=== PATIENT | female | born 1935 | race African-American/Black ===

== ENCOUNTER 2021-08-01 06:22 | Inpatient (IN) | payer MEDICARE, MEDICAID ==
[~2021-08-01] VITALS: Ht 167.6 cm; Wt 72.1 kg
[2021-08-01 07:12] LABS: BASOPHILS % 0.5 % (0.0-2.0); EOSINOPHILS % 2.3 % (0.0-5.0); HEMATOCRIT. 39.7 % (36.0-48.0); HEMOGLOBIN. 12.9 g/dL (12.0-16.0); LYMPHOCYTES % 19.3 % (20.0-50.0); MEAN CORPUSCULAR HEMOGLOBIN 27.9 pg (28.0-32.0); MEAN CORPUSCULAR VOLUME 85.9 fL (81.0-99.0); MEAN PLATELET VOLUME 8.8 fl (7.4-10.4); MONOCYTES % 6.8 % (2.0-8.0); NEUTROPHILS % 71.1 % (40.0-76.0); PLATELET 194 x1000/uL (130-400); RED BLOOD CELL COUNT 4.62 mill/uL (4.2-5.4)
[2021-08-01 07:20] LABS: CHLORIDE 109 mEq/L (98-107)
[2021-08-01] MEDS ORDERED: MAGNESIUM 1 G PREMIX 100 ML IV ONE (08:15)
[2021-08-01] MEDS ORDERED: METHYLPREDNISOLONE SOD SUCC 125 MG/2 ML VIAL IV ONE (08:15)
[2021-08-01] MEDS: AMLODIPINE 5MG TABLET PO SCH ×2 (09:58→21:58)
[2021-08-01] MEDS: ENOXAPARIN 60MG/0.6ML SYR SUBCUT NR ×2 (11:56→14:09)
[2021-08-01 12:25] LABS: PROTHROMBIN TIME 11.2 sec (9.6-11.0)
[2021-08-01] MEDS: NITROGLYCERIN OINT 1GM/INCH UDPKT TD SCH ×2 (14:13→22:04)
[2021-08-01] MEDS ORDERED: CLONIDINE 0.1MG TABLET PO PRN (15:15)
[2021-08-01] MEDS ORDERED: DEXTROSE 50% WATER 50ML SYRINGE IV PRN (15:15)
[2021-08-01] MEDS ORDERED: ONDANSETRON HCL 4MG/2ML INJ IV PRN (15:15)
[2021-08-01] MEDS ORDERED: DOCUSATE SODIUM 100MG CAPSULE PO PRN (15:15)
[2021-08-01] MEDS ORDERED: CEFTRIAXONE 1 G PREMIX 50 ML IV SCH (15:30)
[2021-08-01] MEDS: DEXAMETHASONE 4MG TABLET PO SCH (15:36)
[2021-08-01] MEDS ORDERED: AZITHROMYCIN 500 MG in DEXT 5% WATER 250 ML IV SCH (16:00)
[2021-08-01 16:50] LABS: C REACTIVE PROTEIN CARDIAC 1.9 mg/L (0.00-3.00)
[2021-08-01] MEDS: BLOOD SUGAR DIAGNOSTIC STRIP TEST SCH ×2 (17:30→21:00)
[2021-08-01] MEDS: INSULIN LISPRO 100 UNITS/ML SUBCUT SCH ×2 (17:31→22:01)
[2021-08-01 17:51] VITALS: BP 122/62
[2021-08-01 17:52] VITALS: BP 122/62
[2021-08-01] MEDS ORDERED: ALBUTEROL 6.7GM HFA INHALER ORI PRN (18:00)
[2021-08-01] MEDS ORDERED: METF-416 MT (18:57)
[2021-08-01] MEDS ORDERED: CARV12.545 MT (18:57)
[2021-08-01] MEDS ORDERED: FERR325T6 MT (18:57)
[2021-08-01] MEDS ORDERED: APIX5TAB MT (18:57)
[2021-08-01] MEDS ORDERED: ASPI-1497 MT (18:57)
[2021-08-01] MEDS ORDERED: CALC-26 MT (18:57)
[2021-08-01] MEDS ORDERED: EMPA10TA MT (18:57)
[2021-08-01] MEDS ORDERED: LOSA50TA41 MT (18:57)
[2021-08-01] MEDS ORDERED: DILT-108 MT (18:57)
[2021-08-01 20:00] VITALS: BP 161/66
[2021-08-01] MEDS: GUAIFENESIN 200MG/10ML SUGAR FREE UDC PO PRN (22:10)
[2021-08-02] VITALS: BP 134/69
[2021-08-02 04:00] VITALS: BP 130/69
[2021-08-02] MEDS: BLOOD SUGAR DIAGNOSTIC STRIP TEST SCH ×4 (06:04→21:00)
[2021-08-02] MEDS: NITROGLYCERIN OINT 1GM/INCH UDPKT TD SCH ×3 (06:19→23:17)
[2021-08-02] MEDS: ACETAMINOPHEN 325MG TABLET PO PRN (06:24)
[2021-08-02 08:00] VITALS: BP 142/57
[2021-08-02 08:02] LABS: BASOPHILS % 0.1 % (0.0-2.0); HEMATOCRIT. 35.6 % (36.0-48.0); HEMOGLOBIN. 11.7 g/dL (12.0-16.0); MEAN CORPUSCULAR HEMOGLOBIN 27.7 pg (28.0-32.0); MEAN CORPUSCULAR VOLUME 84.4 fL (81.0-99.0); MEAN PLATELET VOLUME 8.8 fl (7.4-10.4); MONOCYTES % 6.6 % (2.0-8.0); NEUTROPHILS % 80.3 % (40.0-76.0); PLATELET 187 x1000/uL (130-400); RED BLOOD CELL COUNT 4.22 mill/uL (4.2-5.4); RED CELL DISTRIBUTION WIDTH 15.9 % (11.6-14.6)
[2021-08-02 08:15] LABS: CHLORIDE 108 mEq/L (98-107)
[2021-08-02] MEDS: CEFTRIAXONE 1,000 MG in DEXTROSE 5% WATER 50 ML IV SCH (08:38)
[2021-08-02] MEDS: AMLODIPINE 5MG TABLET PO SCH ×2 (08:39→23:15)
[2021-08-02] MEDS: DEXAMETHASONE 4MG TABLET PO SCH (08:39)
[2021-08-02] MEDS: ENOXAPARIN 60MG/0.6ML SYR SUBCUT SCH (08:39)
[2021-08-02] MEDS: ASPIRIN 81MG EC TABLET PO SCH (08:39)
[2021-08-02] MEDS: INSULIN LISPRO 100 UNITS/ML SUBCUT SCH ×4 (08:40→23:16)
[2021-08-02] MEDS: AZITHROMYCIN 500 MG in DEXT 5% WATER 250 ML IV SCH (10:00)
[2021-08-02 12:00] VITALS: BP 139/74
[2021-08-02 16:00] VITALS: BP 131/50
[2021-08-02] MEDS ORDERED: ENOXAPARIN 80MG/0.8ML SYR SUBCUT SCH (20:00)
[2021-08-02] MEDS: GUAIFENESIN 200MG/10ML SUGAR FREE UDC PO PRN (23:16)
[2021-08-02] MEDS: CARVEDILOL 12.5MG TABLET PO SCH (23:16)
[2021-08-03] MEDS: ACETAMINOPHEN 325MG TABLET PO PRN (04:43)
[2021-08-03] MEDS: NITROGLYCERIN OINT 1GM/INCH UDPKT TD SCH ×2 (06:00→13:37)
[2021-08-03 07:08] LABS: BASOPHILS % 0.2 % (0.0-2.0); EOSINOPHILS % 0.2 % (0.0-5.0); HEMOGLOBIN. 12.1 g/dL (12.0-16.0); LYMPHOCYTES % 8.5 % (20.0-50.0); MEAN CORPUSCULAR HEMOGLOBIN 27.6 pg (28.0-32.0); MEAN CORPUSCULAR VOLUME 84.3 fL (81.0-99.0); MONOCYTES % 5.6 % (2.0-8.0); NEUTROPHILS % 85.5 % (40.0-76.0); RED BLOOD CELL COUNT 4.39 mill/uL (4.2-5.4); RED CELL DISTRIBUTION WIDTH 15.5 % (11.6-14.6)
[2021-08-03 07:21] LABS: CHLORIDE 110 mEq/L (98-107)
[2021-08-03] MEDS: BLOOD SUGAR DIAGNOSTIC STRIP TEST SCH ×2 (07:55→13:05)
[2021-08-03 08:00] VITALS: BP 153/54
[2021-08-03 09:00] LABS: MEAN PLATELET VOLUME 9.5 fl (7.4-10.4); PLATELET 161 x1000/uL (130-400)
[2021-08-03] MEDS: AZITHROMYCIN 500 MG in DEXT 5% WATER 250 ML IV SCH (09:49)
[2021-08-03] MEDS: INSULIN LISPRO 100 UNITS/ML SUBCUT SCH ×2 (09:50→13:36)
[2021-08-03] MEDS: CEFTRIAXONE 1,000 MG in DEXTROSE 5% WATER 50 ML IV SCH (09:51)
[2021-08-03] MEDS: ASPIRIN 81MG EC TABLET PO SCH (09:55)
[2021-08-03] MEDS: DEXAMETHASONE 4MG TABLET PO SCH (09:56)
[2021-08-03] MEDS: CARVEDILOL 12.5MG TABLET PO SCH (09:57)
[2021-08-03] MEDS: ENOXAPARIN 60MG/0.6ML SYR SUBCUT SCH (09:58)
[2021-08-03] MEDS: AMLODIPINE 5MG TABLET PO SCH (09:58)
[2021-08-03 12:00] VITALS: BP 138/69
[2021-08-03] MEDS ORDERED: DEXTL PO (13:29)
[2021-08-04] MEDS ORDERED: AZITHROMYCIN 500 MG TABLET PO SCH (09:00)
== END 2021-08-03 16:02 | disposition home or self-care (01) | DRG 871 ==
LOC: ER 06:22 → 7WST 11:51 → ENRESERV 15:54
PROVIDERS: ADMIT Internal Medicine; ATTEND Internal Medicine
DX: A41.9 Sepsis, unspecified organism (principal); J12.82 Pneumonia due to coronavirus disease 2019; U07.1 COVID-19; J96.01 Acute respiratory failure with hypoxia; E78.5 Hyperlipidemia, unspecified; E78.00 Pure hypercholesterolemia, unspecified; I11.9 Hypertensive heart disease without heart failure; I48.0 Paroxysmal atrial fibrillation; E11.65 Type 2 diabetes mellitus with hyperglycemia; I25.10 Atherosclerotic heart disease of native coronary artery without angina pectoris; I25.2 Old myocardial infarction; Z79.01 Long term (current) use of anticoagulants; Z79.899 Other long term (current) drug therapy; Z95.5 Presence of coronary angioplasty implant and graft; Z90.710 Acquired absence of both cervix and uterus
CPT/HCPCS: 36415; 71045; 80048; 80053; 82728; 82962; 83036; 83615; 83880; 84145; 84484; 85025; 85379; 86141; 87426; 93005; 99291; J0456; J0696; J1650; J1815; J2930; J3475; J7060; J8540

== ENCOUNTER 2021-10-03 06:57 | Inpatient (IN) | payer MEDICARE, MEDICAID ==
[~2021-10-03] VITALS: Ht 160 cm; Wt 65.8 kg
[~2021-10-03 06:57] MED LIST: APIX5TAB MT; ASPI-1497 MT; CALC-26 MT; CARV12.545 MT; DEXTL PO; DILT-108 MT; EMPA10TA MT; FERR325T6 MT; LOSA50TA41 MT; METF-416 MT
[2021-10-03] MEDS ORDERED: IPRATROPIUM BROMIDE (0.02%) 0.5MG/2.5ML NEB HHN STA (07:17)
[2021-10-03] MEDS ORDERED: ALBUTEROL (0.083%) 2.5MG/3ML NEB HHN STA (07:17)
[2021-10-03] MEDS ORDERED: METHYLPREDNISOLONE SOD SUCC 125 MG/2 ML VIAL IV STA (07:17)
[2021-10-03] MEDS ORDERED: ASPIRIN 325MG EC TABLET PO ONE (07:30)
[2021-10-03] MEDS ORDERED: MAGNESIUM 2 G PREMIX 50 ML IV ONE (07:30)
[2021-10-03 07:35] LABS: BASOPHILS % 0.7 % (0.0-2.0); EOSINOPHILS % 2.5 % (0.0-5.0); HEMATOCRIT. 37.4 % (36.0-48.0); HEMOGLOBIN. 12.1 g/dL (12.0-16.0); LYMPHOCYTES % 10.9 % (20.0-50.0); MEAN CORPUSCULAR HEMOGLOBIN 28.6 pg (28.0-32.0); MEAN CORPUSCULAR VOLUME 88.1 fL (81.0-99.0); MEAN PLATELET VOLUME 8.9 fl (7.4-10.4); MONOCYTES % 7.3 % (2.0-8.0); NEUTROPHILS % 78.6 % (40.0-76.0); PLATELET 157 x1000/uL (130-400); RED BLOOD CELL COUNT 4.24 mill/uL (4.2-5.4); RED CELL DISTRIBUTION WIDTH 15.9 % (11.6-14.6)
[2021-10-03 07:51] LABS: CHLORIDE 112 mEq/L (98-107)
[2021-10-03 09:09] LABS: CLARITY URINE CLEAR (CLEAR); COLOR URINE YELLOW (YELLOW); KETONES URINE NEGATIVE (NEGATIVE); LEUKOCYTE ESTERASE URINE TRACE (NEGATIVE); NITRITE URINE NEGATIVE (NEGATIVE); OCCULT BLOOD URINE TRACE (NEGATIVE); PROTEIN URINE 1+ (NEGATIVE); SPECIFIC GRAVITY URINE 1.028 (1.005-1.030); UROBILINOGEN URINE 0.2 E.U./dL (0.2-1.0)
[2021-10-03] MEDS ORDERED: FUROSEMIDE 20MG/2ML VIAL IVP ONE (09:15)
[2021-10-03] MEDS ORDERED: IPRATROPIUM/ALBUTEROL 0.5-3(2.5)MG/3ML NEB HHN PRN (13:00)
[2021-10-03] MEDS ORDERED: MAGNESIUM/ALUMINUM HYDROXIDE/SIMETHICONE 30ML UDC PO PRN (13:00)
[2021-10-03] MEDS ORDERED: DEXTROSE 50% WATER 50ML SYRINGE IV PRN (13:00)
[2021-10-03] MEDS ORDERED: CLONIDINE 0.1MG TABLET PO PRN (13:00)
[2021-10-03] MEDS ORDERED: ONDANSETRON HCL 4MG/2ML INJ IV PRN (13:00)
[2021-10-03] MEDS ORDERED: ACETAMINOPHEN 325MG TABLET PO PRN (13:00)
[2021-10-03] MEDS ORDERED: DIPHENHYDRAMINE 50MG/ML VIAL IV PRN (13:00)
[2021-10-03] MEDS: BLOOD SUGAR DIAGNOSTIC STRIP TEST SCH ×2 (13:23→21:56)
[2021-10-03] MEDS: INSULIN LISPRO 100 UNITS/ML SUBCUT SCH ×2 (13:26→22:21)
[2021-10-03] MEDS: CARVEDILOL 12.5MG TABLET PO SCH ×2 (13:44→21:58)
[2021-10-03] MEDS ORDERED: NITROGLYCERIN OINT 1GM/INCH UDPKT TD SCH (14:00)
[2021-10-03] MEDS: ENOXAPARIN 80MG/0.8ML SYR SUBCUT SCH (14:13)
[2021-10-03] MEDS: SODIUM CHLORIDE 0.9% INJ 3ML FLUSH IVF SCH ×2 (14:13→22:43)
[2021-10-03 18:58] VITALS: BP 138/75
[2021-10-03] MEDS ORDERED: DILTIAZEM HCL 5MG/ML 5ML VIAL IV NR (19:15)
[2021-10-03 20:00] VITALS: BP 149/85
[2021-10-03] MEDS ORDERED: ZOLPIDEM TARTRATE 5MG TABLET PO PRN (21:00)
[2021-10-03] MEDS ORDERED: AMLODIPINE 5MG TABLET PO SCH (21:00)
[2021-10-03] MEDS: ACETAMINOPHEN 325MG TABLET PO PRN (21:58)
[2021-10-03] MEDS: ATORVASTATIN CALCIUM 20MG TABLET PO SCH (21:58)
[2021-10-03] MEDS: DILTIAZEM HCL 60MG TABLET PO SCH (22:42)
[2021-10-04] VITALS: BP 118/56
[2021-10-04] MEDS: GUAIFENESIN 200MG/10ML SUGAR FREE UDC PO PRN ×3 (02:10→21:21)
[2021-10-04] MEDS: ENOXAPARIN 80MG/0.8ML SYR SUBCUT SCH (02:10)
[2021-10-04 04:00] VITALS: BP 131/75
[2021-10-04] MEDS: DILTIAZEM HCL 60MG TABLET PO SCH (05:00)
[2021-10-04] MEDS: SODIUM CHLORIDE 0.9% INJ 3ML FLUSH IVF SCH ×3 (05:01→21:23)
[2021-10-04 06:19] LABS: HEMATOCRIT. 37.5 % (36.0-48.0); HEMOGLOBIN. 12.3 g/dL (12.0-16.0); LYMPHOCYTES % 7.7 % (20.0-50.0); MEAN CORPUSCULAR HEMOGLOBIN 27.9 pg (28.0-32.0); MEAN PLATELET VOLUME 9.3 fl (7.4-10.4); MONOCYTES % 5.2 % (2.0-8.0); NEUTROPHILS % 87.1 % (40.0-76.0); PLATELET 174 x1000/uL (130-400); RED BLOOD CELL COUNT 4.41 mill/uL (4.2-5.4); RED CELL DISTRIBUTION WIDTH 16.1 % (11.6-14.6)
[2021-10-04] MEDS: BLOOD SUGAR DIAGNOSTIC STRIP TEST SCH ×4 (06:21→21:41)
[2021-10-04 06:30] LABS: INR 1.1; PROTHROMBIN TIME 12.1 sec (9.6-11.0)
[2021-10-04] MEDS ORDERED: DILTIAZEM HCL 5MG/ML 5ML VIAL IV PRN (06:30)
[2021-10-04 06:38] LABS: CHLORIDE 109 mEq/L (98-107)
[2021-10-04 07:34] VITALS: BP 130/70
[2021-10-04] MEDS: INSULIN LISPRO 100 UNITS/ML SUBCUT SCH ×4 (07:50→21:40)
[2021-10-04] MEDS: ASPIRIN 81MG EC TABLET PO SCH (08:45)
[2021-10-04] MEDS: CARVEDILOL 12.5MG TABLET PO SCH ×2 (08:45→21:00)
[2021-10-04] MEDS: ACETAMINOPHEN 325MG TABLET PO PRN (10:38)
[2021-10-04 12:00] VITALS: BP 120/64
[2021-10-04] MEDS: DILTIAZEM HCL 90MG TABLET PO SCH ×2 (13:53→21:22)
[2021-10-04 16:00] VITALS: BP 119/66
[2021-10-04] MEDS: APIXABAN 5 MG TABLET PO SCH (17:29)
[2021-10-04] MEDS: METFORMIN HCL 500MG TABLET PO SCH (17:29)
[2021-10-04] MEDS: PROMETHAZINE/DEXTROMETHORPHAN 6.25-15MG/5ML BOTTLE 120ML PO PRN (17:30)
[2021-10-04 20:00] VITALS: BP 109/68
[2021-10-04] MEDS: GUAIFENESIN 600MG ER TABLET PO SCH (21:00)
[2021-10-04] MEDS: ATORVASTATIN CALCIUM 20MG TABLET PO SCH (21:22)
[2021-10-04] MEDS: INSULIN GLARGINE 100 UNITS/ML SUBCUT SCH (21:41)
[2021-10-05] VITALS (7 sets, daily range): BP systolic 115–147; BP diastolic 61–78
[2021-10-05] MEDS: PROMETHAZINE/DEXTROMETHORPHAN 6.25-15MG/5ML BOTTLE 120ML PO PRN ×2 (02:47→11:56)
[2021-10-05 06:16] LABS: BASOPHILS % 0.2 % (0.0-2.0); EOSINOPHILS % 0.8 % (0.0-5.0); HEMATOCRIT. 37.4 % (36.0-48.0); HEMOGLOBIN. 12.3 g/dL (12.0-16.0); LYMPHOCYTES % 16.2 % (20.0-50.0); MEAN CORPUSCULAR HEMOGLOBIN 28.1 pg (28.0-32.0); MEAN CORPUSCULAR VOLUME 85.5 fL (81.0-99.0); MONOCYTES % 8.7 % (2.0-8.0); NEUTROPHILS % 74.1 % (40.0-76.0); PLATELET 183 x1000/uL (130-400); RED BLOOD CELL COUNT 4.37 mill/uL (4.2-5.4); RED CELL DISTRIBUTION WIDTH 15.5 % (11.6-14.6)
[2021-10-05] MEDS: BLOOD SUGAR DIAGNOSTIC STRIP TEST SCH ×4 (06:24→21:26)
[2021-10-05] MEDS: SODIUM CHLORIDE 0.9% INJ 3ML FLUSH IVF SCH ×3 (06:24→21:18)
[2021-10-05] MEDS: DILTIAZEM HCL 90MG TABLET PO SCH (06:24)
[2021-10-05] MEDS: INSULIN LISPRO 100 UNITS/ML SUBCUT SCH ×4 (07:12→21:20)
[2021-10-05 07:16] LABS: CHLORIDE 111 mEq/L (98-107)
[2021-10-05] MEDS: CARVEDILOL 12.5MG TABLET PO SCH ×2 (08:31→21:18)
[2021-10-05] MEDS: METFORMIN HCL 500MG TABLET PO SCH ×2 (08:31→16:58)
[2021-10-05] MEDS: ASPIRIN 81MG EC TABLET PO SCH (08:31)
[2021-10-05] MEDS: APIXABAN 5 MG TABLET PO SCH ×2 (08:31→16:57)
[2021-10-05] MEDS: GUAIFENESIN 600MG ER TABLET PO SCH ×2 (08:31→22:24)
[2021-10-05] MEDS: DILTIAZEM HCL 180MG CAPSULE CD 24HR PO SCH ×2 (11:55→21:18)
[2021-10-05] MEDS: ATORVASTATIN CALCIUM 20MG TABLET PO SCH (21:18)
[2021-10-05] MEDS: GUAIFENESIN 200MG/10ML SUGAR FREE UDC PO PRN ×2 (21:19→22:24)
[2021-10-05] MEDS: INSULIN GLARGINE 100 UNITS/ML SUBCUT SCH (21:20)
[2021-10-06] MEDS: ACETAMINOPHEN 325MG TABLET PO PRN ×2 (03:14→15:43)
[2021-10-06] MEDS: PROMETHAZINE/DEXTROMETHORPHAN 6.25-15MG/5ML BOTTLE 120ML PO PRN (03:16)
[2021-10-06 04:00] VITALS: BP 155/75
[2021-10-06] MEDS: SODIUM CHLORIDE 0.9% INJ 3ML FLUSH IVF SCH ×3 (06:15→21:57)
[2021-10-06] MEDS: BLOOD SUGAR DIAGNOSTIC STRIP TEST SCH ×4 (07:13→21:56)
[2021-10-06] MEDS: INSULIN LISPRO 100 UNITS/ML SUBCUT SCH ×4 (07:50→21:00)
[2021-10-06 08:00] VITALS: BP 141/75
[2021-10-06] MEDS: GUAIFENESIN 600MG ER TABLET PO SCH ×2 (09:00→21:56)
[2021-10-06] MEDS: DILTIAZEM HCL 180MG CAPSULE CD 24HR PO SCH ×2 (10:13→21:55)
[2021-10-06] MEDS: ASPIRIN 81MG EC TABLET PO SCH (10:14)
[2021-10-06] MEDS: METFORMIN HCL 500MG TABLET PO SCH ×2 (10:14→18:00)
[2021-10-06] MEDS: APIXABAN 5 MG TABLET PO SCH ×2 (10:14→18:00)
[2021-10-06] MEDS: CARVEDILOL 12.5MG TABLET PO SCH ×2 (10:14→21:55)
[2021-10-06 12:00] VITALS: BP 120/71
[2021-10-06] MEDS ORDERED: ALEN70TA79 PO (15:35)
[2021-10-06] MEDS ORDERED: INSU200I4 SQ (15:35)
[2021-10-06] MEDS ORDERED: SIMV-43 PO (15:35)
[2021-10-06 16:00] VITALS: BP 117/54
[2021-10-06 16:22] LABS: BASOPHILS % 0.3 % (0.0-2.0); HEMATOCRIT. 38.9 % (36.0-48.0); HEMOGLOBIN. 12.2 g/dL (12.0-16.0); LYMPHOCYTES % 12.4 % (20.0-50.0); MEAN CORPUSCULAR HEMOGLOBIN 28.2 pg (28.0-32.0); MEAN CORPUSCULAR VOLUME 89.5 fL (81.0-99.0); MEAN PLATELET VOLUME 8.9 fl (7.4-10.4); MONOCYTES % 9.4 % (2.0-8.0); NEUTROPHILS % 75.9 % (40.0-76.0); PLATELET 167 x1000/uL (130-400); RED BLOOD CELL COUNT 4.35 mill/uL (4.2-5.4); RED CELL DISTRIBUTION WIDTH 16.4 % (11.6-14.6)
[2021-10-06 17:09] LABS: CHLORIDE 111 mEq/L (98-107)
[2021-10-06] MEDS ORDERED: FUROSEMIDE 40MG/4ML VIAL IVP NR (18:15)
[2021-10-06 20:00] VITALS: BP 137/61
[2021-10-06] MEDS: ATORVASTATIN CALCIUM 20MG TABLET PO SCH (21:55)
[2021-10-06] MEDS: INSULIN GLARGINE 100 UNITS/ML SUBCUT SCH (21:59)
[2021-10-07] VITALS: BP 144/66
[2021-10-07] MEDS ORDERED: FUROSEMIDE 20MG TABLET PO SCH ×2 (00:10→09:00)
[2021-10-07] MEDS ORDERED: FUROSEMIDE 40MG/4ML VIAL IVP NR (00:45)
[2021-10-07 04:00] VITALS: BP 132/60
[2021-10-07 06:40] LABS: BASOPHILS % 0.4 % (0.0-2.0); EOSINOPHILS % 3.7 % (0.0-5.0); HEMATOCRIT. 37.9 % (36.0-48.0); HEMOGLOBIN. 12.2 g/dL (12.0-16.0); LYMPHOCYTES % 16.9 % (20.0-50.0); MEAN CORPUSCULAR HEMOGLOBIN 27.9 pg (28.0-32.0); MEAN PLATELET VOLUME 9.4 fl (7.4-10.4); MONOCYTES % 10.1 % (2.0-8.0); NEUTROPHILS % 68.9 % (40.0-76.0); PLATELET 168 x1000/uL (130-400); RED BLOOD CELL COUNT 4.35 mill/uL (4.2-5.4); RED CELL DISTRIBUTION WIDTH 15.7 % (11.6-14.6)
[2021-10-07] MEDS: BLOOD SUGAR DIAGNOSTIC STRIP TEST SCH ×4 (06:41→21:58)
[2021-10-07] MEDS: METFORMIN HCL 500MG TABLET PO SCH ×2 (06:48→16:56)
[2021-10-07] MEDS: SODIUM CHLORIDE 0.9% INJ 3ML FLUSH IVF SCH ×3 (06:48→22:20)
[2021-10-07 07:10] LABS: CHLORIDE 108 mEq/L (98-107)
[2021-10-07 08:30] VITALS: BP 140/66
[2021-10-07] MEDS: INSULIN LISPRO 100 UNITS/ML SUBCUT SCH ×4 (08:56→21:00)
[2021-10-07] MEDS: GUAIFENESIN 600MG ER TABLET PO SCH ×2 (08:57→22:20)
[2021-10-07] MEDS: ASPIRIN 81MG EC TABLET PO SCH (08:57)
[2021-10-07] MEDS: CARVEDILOL 12.5MG TABLET PO SCH (08:57)
[2021-10-07] MEDS: APIXABAN 5 MG TABLET PO SCH (08:57)
[2021-10-07] MEDS: DILTIAZEM HCL 180MG CAPSULE CD 24HR PO SCH ×2 (08:58→22:19)
[2021-10-07] MEDS ORDERED: FUROSEMIDE 40MG TABLET PO SCH (09:00)
[2021-10-07 11:43] VITALS: BP 138/64
[2021-10-07] MEDS: FUROSEMIDE 40MG/4ML VIAL IVP SCH (14:05)
[2021-10-07] MEDS ORDERED: METOPROLOL TARTRATE 25MG TABLET PO NR (15:00)
[2021-10-07 16:30] VITALS: BP 140/60
[2021-10-07 20:00] VITALS: BP 143/62
[2021-10-07] MEDS: ATORVASTATIN CALCIUM 20MG TABLET PO SCH (22:19)
[2021-10-07] MEDS: METOPROLOL TARTRATE 25MG TABLET PO SCH (22:20)
[2021-10-07] MEDS: INSULIN GLARGINE 100 UNITS/ML SUBCUT SCH (22:26)
[2021-10-08] VITALS: BP 130/60
[2021-10-08 04:00] VITALS: BP 149/70
[2021-10-08] MEDS: SODIUM CHLORIDE 0.9% INJ 3ML FLUSH IVF SCH ×3 (05:52→21:40)
[2021-10-08] MEDS: BLOOD SUGAR DIAGNOSTIC STRIP TEST SCH ×4 (05:52→21:39)
[2021-10-08] MEDS: METFORMIN HCL 500MG TABLET PO SCH ×2 (05:52→17:00)
[2021-10-08] MEDS: ASPIRIN 81MG EC TABLET PO SCH (07:10)
[2021-10-08 08:08] VITALS: BP 154/88
[2021-10-08] MEDS: INSULIN LISPRO 100 UNITS/ML SUBCUT SCH ×4 (08:48→21:00)
[2021-10-08] MEDS: FUROSEMIDE 40MG/4ML VIAL IVP SCH (08:49)
[2021-10-08] MEDS: METOPROLOL TARTRATE 25MG TABLET PO SCH ×2 (09:51→21:39)
[2021-10-08] MEDS: GUAIFENESIN 600MG ER TABLET PO SCH ×2 (09:51→21:38)
[2021-10-08] MEDS: DILTIAZEM HCL 180MG CAPSULE CD 24HR PO SCH ×2 (09:51→21:39)
[2021-10-08 12:16] VITALS: BP 144/66
[2021-10-08 16:21] VITALS: BP 140/56
[2021-10-08 16:25] LABS: BASOPHILS % 0.4 % (0.0-2.0); EOSINOPHILS % 2.7 % (0.0-5.0); HEMATOCRIT. 39.4 % (36.0-48.0); HEMOGLOBIN. 12.6 g/dL (12.0-16.0); LYMPHOCYTES % 13.6 % (20.0-50.0); MEAN CORPUSCULAR HEMOGLOBIN 27.7 pg (28.0-32.0); MEAN CORPUSCULAR VOLUME 86.5 fL (81.0-99.0); MEAN PLATELET VOLUME 9.2 fl (7.4-10.4); MONOCYTES % 9.3 % (2.0-8.0); PLATELET 189 x1000/uL (130-400); RED BLOOD CELL COUNT 4.55 mill/uL (4.2-5.4); RED CELL DISTRIBUTION WIDTH 15.6 % (11.6-14.6)
[2021-10-08 20:00] VITALS: BP 159/62
[2021-10-08] MEDS: ATORVASTATIN CALCIUM 20MG TABLET PO SCH (21:40)
[2021-10-08] MEDS: GUAIFENESIN 200MG/10ML SUGAR FREE UDC PO PRN (21:44)
[2021-10-08] MEDS: INSULIN GLARGINE 100 UNITS/ML SUBCUT SCH (21:44)
[2021-10-09] VITALS (7 sets, daily range): BP systolic 17–151; BP diastolic 54–66
[2021-10-09] MEDS: BLOOD SUGAR DIAGNOSTIC STRIP TEST SCH ×4 (06:37→21:27)
[2021-10-09] MEDS: SODIUM CHLORIDE 0.9% INJ 3ML FLUSH IVF SCH ×3 (06:38→21:32)
[2021-10-09] MEDS: INSULIN LISPRO 100 UNITS/ML SUBCUT SCH ×4 (07:50→21:37)
[2021-10-09] MEDS: DILTIAZEM HCL 180MG CAPSULE CD 24HR PO SCH ×2 (09:00→11:51)
[2021-10-09] MEDS: FUROSEMIDE 40MG/4ML VIAL IVP SCH (10:39)
[2021-10-09] MEDS: GUAIFENESIN 600MG ER TABLET PO SCH ×2 (10:40→21:29)
[2021-10-09] MEDS: METFORMIN HCL 500MG TABLET PO SCH ×2 (10:40→17:45)
[2021-10-09] MEDS: METOPROLOL TARTRATE 25MG TABLET PO SCH ×2 (10:40→21:30)
[2021-10-09 16:33] LABS: HEMATOCRIT 41.3 % (36.0-48.0); HEMOGLOBIN 13.2 g/dL (12.0-16.0); MEAN CORPUSCULAR HEMOGLOBIN 28.3 pg (28.0-32.0); MEAN CORPUSCULAR VOLUME 88.1 fL (81.0-99.0); PLATELET 199 x1000/uL (130-400); RED BLOOD CELL COUNT 4.69 mill/uL (4.2-5.4); RED CELL DISTRIBUTION WIDTH 15.8 % (11.6-14.6)
[2021-10-09 16:54] LABS: CHLORIDE 104 mEq/L (98-107)
[2021-10-09] MEDS: ATORVASTATIN CALCIUM 20MG TABLET PO SCH (21:29)
[2021-10-09] MEDS: GUAIFENESIN 200MG/10ML SUGAR FREE UDC PO PRN (21:31)
[2021-10-09] MEDS: INSULIN GLARGINE 100 UNITS/ML SUBCUT SCH (21:36)
[2021-10-10] VITALS (7 sets, daily range): BP systolic 123–156; BP diastolic 51–65
[2021-10-10] MEDS: METFORMIN HCL 500MG TABLET PO SCH ×2 (06:46→17:09)
[2021-10-10] MEDS: BLOOD SUGAR DIAGNOSTIC STRIP TEST SCH ×4 (06:46→20:34)
[2021-10-10] MEDS: SODIUM CHLORIDE 0.9% INJ 3ML FLUSH IVF SCH ×3 (06:47→21:20)
[2021-10-10] MEDS: INSULIN LISPRO 100 UNITS/ML SUBCUT SCH ×4 (06:47→20:34)
[2021-10-10] MEDS: FUROSEMIDE 40MG/4ML VIAL IVP SCH (08:54)
[2021-10-10] MEDS: GUAIFENESIN 600MG ER TABLET PO SCH ×2 (08:54→21:19)
[2021-10-10] MEDS: DILTIAZEM HCL 180MG CAPSULE CD 24HR PO SCH ×2 (08:55→21:19)
[2021-10-10] MEDS: METOPROLOL TARTRATE 25MG TABLET PO SCH ×2 (08:55→21:19)
[2021-10-10] MEDS: ATORVASTATIN CALCIUM 20MG TABLET PO SCH (21:19)
[2021-10-10] MEDS: GUAIFENESIN 200MG/10ML SUGAR FREE UDC PO PRN (22:34)
[2021-10-10] MEDS: INSULIN GLARGINE 100 UNITS/ML SUBCUT SCH (22:35)
[2021-10-10] MEDS: PROMETHAZINE/DEXTROMETHORPHAN 6.25-15MG/5ML BOTTLE 120ML PO PRN (22:39)
[2021-10-11 01:53] LABS: INR 1.1; PROTHROMBIN TIME 11.4 sec (9.6-11.0)
[2021-10-11 04:30] VITALS: BP 132/53
[2021-10-11] MEDS: SODIUM CHLORIDE 0.9% INJ 3ML FLUSH IVF SCH ×3 (05:56→21:23)
[2021-10-11] MEDS: BLOOD SUGAR DIAGNOSTIC STRIP TEST SCH ×4 (06:29→21:24)
[2021-10-11] MEDS: INSULIN LISPRO 100 UNITS/ML SUBCUT SCH ×4 (07:50→21:00)
[2021-10-11 08:00] VITALS: BP 151/61
[2021-10-11] MEDS: FUROSEMIDE 40MG/4ML VIAL IVP SCH (08:54)
[2021-10-11] MEDS: METFORMIN HCL 500MG TABLET PO SCH ×2 (08:55→17:40)
[2021-10-11] MEDS: DILTIAZEM HCL 180MG CAPSULE CD 24HR PO SCH ×2 (08:55→21:23)
[2021-10-11] MEDS: GUAIFENESIN 600MG ER TABLET PO SCH ×2 (08:56→21:23)
[2021-10-11] MEDS: METOPROLOL TARTRATE 25MG TABLET PO SCH ×2 (08:56→21:23)
[2021-10-11 12:00] VITALS: BP 140/70
[2021-10-11 16:00] VITALS: BP 146/56
[2021-10-11 20:00] VITALS: BP 137/70
[2021-10-11] MEDS: ATORVASTATIN CALCIUM 20MG TABLET PO SCH (21:23)
[2021-10-11] MEDS: GUAIFENESIN 200MG/10ML SUGAR FREE UDC PO PRN (21:27)
[2021-10-11 23:24] VITALS: BP 141/50
[2021-10-11] MEDS: INSULIN GLARGINE 100 UNITS/ML SUBCUT SCH (23:30)
[2021-10-12 04:00] VITALS: BP 136/55
[2021-10-12] MEDS: SODIUM CHLORIDE 0.9% INJ 3ML FLUSH IVF SCH ×2 (06:57→13:15)
[2021-10-12] MEDS: METFORMIN HCL 500MG TABLET PO SCH (06:57)
[2021-10-12] MEDS: BLOOD SUGAR DIAGNOSTIC STRIP TEST SCH ×2 (06:57→12:17)
[2021-10-12] MEDS: INSULIN LISPRO 100 UNITS/ML SUBCUT SCH ×2 (06:57→13:17)
[2021-10-12 08:06] VITALS: BP 143/49
[2021-10-12] MEDS: GUAIFENESIN 600MG ER TABLET PO SCH (09:11)
[2021-10-12] MEDS: DILTIAZEM HCL 180MG CAPSULE CD 24HR PO SCH (09:11)
[2021-10-12] MEDS: METOPROLOL TARTRATE 25MG TABLET PO SCH (09:11)
[2021-10-12] MEDS: FUROSEMIDE 40MG/4ML VIAL IVP SCH (09:12)
[2021-10-12 12:30] VITALS: BP 140/93
[2021-10-12 14:01] VITALS: BP 140/93
[2021-10-12 14:15] VITALS: BP 140/93
[2021-10-12] MEDS ORDERED: APIXABAN 5 MG TABLET PO NR (14:30)
== END 2021-10-12 16:09 | disposition home or self-care (01) | DRG 291 ==
LOC: ER 07:10 → 6WST 09:13 → ENRESERV 15:57
PROVIDERS: ADMIT Internal Medicine; ATTEND Internal Medicine
PROC: 5A09357 Assistance with Respiratory Ventilation, Less than 24 Consecutive Hours, Continuous Positive Airway Pressure (ICD-10-PCS; principal; 2021-10-03)
DX: I11.0 Hypertensive heart disease with heart failure (principal); I50.33 Acute on chronic diastolic (congestive) heart failure; J96.01 Acute respiratory failure with hypoxia; J84.9 Interstitial pulmonary disease, unspecified; E78.5 Hyperlipidemia, unspecified; I48.0 Paroxysmal atrial fibrillation; I25.10 Atherosclerotic heart disease of native coronary artery without angina pectoris; Z20.822 Contact with and (suspected) exposure to COVID-19; E11.9 Type 2 diabetes mellitus without complications; E78.00 Pure hypercholesterolemia, unspecified; E87.5 Hyperkalemia; I25.2 Old myocardial infarction; Z79.01 Long term (current) use of anticoagulants; Z79.899 Other long term (current) drug therapy; Z86.16 Personal history of COVID-19; Z79.4 Long term (current) use of insulin; Z95.5 Presence of coronary angioplasty implant and graft; Z90.710 Acquired absence of both cervix and uterus
CPT/HCPCS: 36415; 71045; 76604; 76700; 80048; 80053; 81003; 82962; 83615; 83735; 83880; 84155; 84484; 85025; 85027; 87426; 93005; 93306; 94640; 99291; J1650; J1815; J1940; J2405; J2930; J3475; J3490

== ENCOUNTER 2021-11-24 19:59 | Inpatient (IN) | payer MEDICARE, MEDICAID ==
[~2021-11-24] VITALS: Ht 160 cm; Wt 72.1 kg
[~2021-11-24 19:59] MED LIST changes: +ALEN70TA79 PO; +INSU200I4 SQ; +SIMV-43 PO
[2021-11-24] MEDS ORDERED: ASPIRIN 81MG TABLET PO ONE (20:15)
[2021-11-24] MEDS ORDERED: FUROSEMIDE 40MG/4ML VIAL IV ONE (20:15)
[2021-11-24] MEDS ORDERED: NITROGLYCERIN OINT 1GM/INCH UDPKT TD ONE (20:15)
[2021-11-24 20:36] LABS: BASOPHILS % 0.6 % (0.0-2.0); EOSINOPHILS % 2.8 % (0.0-5.0); HEMATOCRIT. 39.6 % (36.0-48.0); HEMOGLOBIN. 12.8 g/dL (12.0-16.0); LYMPHOCYTES % 18.9 % (20.0-50.0); MEAN CORPUSCULAR HEMOGLOBIN 27.9 pg (28.0-32.0); MEAN CORPUSCULAR VOLUME 86.1 fL (81.0-99.0); MONOCYTES % 10.4 % (2.0-8.0); NEUTROPHILS % 67.3 % (40.0-76.0); PLATELET 187 x1000/uL (130-400); RED CELL DISTRIBUTION WIDTH 15.4 % (11.6-14.6)
[2021-11-24 20:43] LABS: CHLORIDE 120 mEq/L (98-107)
[2021-11-24 21:18] LABS: BG FRACTION INSPIRED OXYGEN 100; BG VENT MODE MASK - BIPAP
[2021-11-24 21:19] LABS: BG BASE EXCESS -2.7 mmol/L (-2.0-2.0); BG CARBOXYHEMOGLOBIN 0.2 % (0.5-1.5); BG DEOXYHEMOGLOBIN 0.8 % (0.0-5.0); BG HCO3 ACT 21.3 mmol/L (22.0-26.0); BG METHEMOGLOBIN 0.1 % (0.0-1.5); BG OXYGEN SATURATION 99.2 % (92.0-98.5); BG OXYHEMOGLOBIN 98.9 % (94.0-97.0); BG PCO2 34.3 mmHg (35.0-45.0); BG PO2 507.6 mmHg (75.0-100.0); BG TOTAL HEMOGLOBIN 12.6 g/dL (12.0-18.0)
[2021-11-24] MEDS ORDERED: KCL 20MEQ/100ML PREMIX 100 ML IV ONE (21:30)
[2021-11-24 23:40] VITALS: BP 128/66
[2021-11-25] VITALS (12 sets, daily range): BP systolic 107–144; BP diastolic 58–72
[2021-11-25] MEDS ORDERED: DEXTROSE 50% WATER 50ML SYRINGE IV PRN (02:45)
[2021-11-25] MEDS: HYDROCODONE/ACETAMINOPHEN 5/325MG TABLET PO PRN ×2 (05:23→21:43)
[2021-11-25 05:43] LABS: CHLORIDE 112 mEq/L (98-107)
[2021-11-25 05:52] LABS: HDL CHOLESTEROL 40 mg/dL (40-59); LDL CHOLESTEROL 60 mg/dL (5-100)
[2021-11-25 06:16] LABS: BASOPHILS % 0.6 % (0.0-2.0); EOSINOPHILS % 2.1 % (0.0-5.0); HEMOGLOBIN. 11.4 g/dL (12.0-16.0); LYMPHOCYTES % 17.2 % (20.0-50.0); MEAN CORPUSCULAR HEMOGLOBIN 27.8 pg (28.0-32.0); MEAN CORPUSCULAR VOLUME 85.5 fL (81.0-99.0); MEAN PLATELET VOLUME 9.3 fl (7.4-10.4); MONOCYTES % 11.1 % (2.0-8.0); PLATELET 165 x1000/uL (130-400); RED BLOOD CELL COUNT 4.09 mill/uL (4.2-5.4); RED CELL DISTRIBUTION WIDTH 15.4 % (11.6-14.6)
[2021-11-25] MEDS: INSULIN LISPRO 100 UNITS/ML SUBCUT SCH ×4 (08:00→21:44)
[2021-11-25] MEDS: BLOOD SUGAR DIAGNOSTIC STRIP TEST SCH ×4 (08:02→21:45)
[2021-11-25] MEDS ORDERED: ALENDRONATE SODIUM 35MG TABLET PO SCH (09:00)
[2021-11-25] MEDS: APIXABAN 5 MG TABLET PO SCH ×2 (09:29→17:18)
[2021-11-25] MEDS: CARVEDILOL 12.5MG TABLET PO SCH ×2 (09:29→21:43)
[2021-11-25] MEDS: METFORMIN HCL 500MG TABLET PO SCH ×2 (09:30→17:18)
[2021-11-25] MEDS: DILTIAZEM HCL 120MG CAPSULE CD 24HR PO SCH (09:31)
[2021-11-25] MEDS: ASPIRIN 81MG TABLET PO SCH (09:31)
[2021-11-25] MEDS: LOSARTAN POTASSIUM 50 MG TABLET PO SCH (09:32)
[2021-11-25 12:02] LABS: CLARITY URINE CLEAR (CLEAR); COLOR URINE YELLOW (YELLOW); KETONES URINE NEGATIVE (NEGATIVE); LEUKOCYTE ESTERASE URINE NEGATIVE (NEGATIVE); NITRITE URINE NEGATIVE (NEGATIVE); OCCULT BLOOD URINE NEGATIVE (NEGATIVE); PROTEIN URINE NEGATIVE (NEGATIVE); SPECIFIC GRAVITY URINE 1.026 (1.005-1.030); UROBILINOGEN URINE 0.2 E.U./dL (0.2-1.0)
[2021-11-25] MEDS ORDERED: NALOXONE HCL 0.4MG/ML VIAL IV PRN (18:30)
[2021-11-25] MEDS ORDERED: ATORVASTATIN CALCIUM 10MG TABLET PO SCH (21:00)
[2021-11-26] VITALS: BP 132/66
[2021-11-26 02:00] VITALS: BP 130/59
[2021-11-26 04:00] VITALS: BP 123/58
[2021-11-26 06:00] VITALS: BP 131/60
[2021-11-26] MEDS: INSULIN LISPRO 100 UNITS/ML SUBCUT SCH ×2 (07:46→13:00)
[2021-11-26] MEDS: BLOOD SUGAR DIAGNOSTIC STRIP TEST SCH ×2 (07:46→10:50)
[2021-11-26] MEDS: METFORMIN HCL 500MG TABLET PO SCH (08:00)
[2021-11-26] MEDS ORDERED: FUROSEMIDE 40MG/4ML VIAL IVP SCH (09:00)
[2021-11-26] MEDS: LOSARTAN POTASSIUM 50 MG TABLET PO SCH (10:17)
[2021-11-26] MEDS: ASPIRIN 81MG TABLET PO SCH (10:17)
[2021-11-26] MEDS: CARVEDILOL 12.5MG TABLET PO SCH (10:17)
[2021-11-26] MEDS: APIXABAN 5 MG TABLET PO SCH (10:17)
[2021-11-26] MEDS: DILTIAZEM HCL 120MG CAPSULE CD 24HR PO SCH (10:43)
[2021-11-26 13:36] VITALS: BP 124/65
== END 2021-11-26 16:37 | disposition home or self-care (01) | DRG 291 ==
LOC: ER 19:59 → 5EST 21:27 → ENRESERV 22:06 → 5EST 11-25 04:15
PROVIDERS: ADMIT Internal Medicine; ATTEND Internal Medicine
PROC: 5A09357 Assistance with Respiratory Ventilation, Less than 24 Consecutive Hours, Continuous Positive Airway Pressure (ICD-10-PCS; principal; 2021-11-24)
DX: I11.0 Hypertensive heart disease with heart failure (principal); J96.01 Acute respiratory failure with hypoxia; I50.23 Acute on chronic systolic (congestive) heart failure; E44.0 Moderate protein-calorie malnutrition; E87.1 Hypo-osmolality and hyponatremia; E11.9 Type 2 diabetes mellitus without complications; E78.00 Pure hypercholesterolemia, unspecified; I25.10 Atherosclerotic heart disease of native coronary artery without angina pectoris; E78.5 Hyperlipidemia, unspecified; E87.6 Hypokalemia; E87.8 Other disorders of electrolyte and fluid balance, not elsewhere classified; I08.3 Combined rheumatic disorders of mitral, aortic and tricuspid valves; I27.20 Pulmonary hypertension, unspecified; I48.0 Paroxysmal atrial fibrillation; Z86.16 Personal history of COVID-19; Z87.01 Personal history of pneumonia (recurrent); Z90.710 Acquired absence of both cervix and uterus; Z95.5 Presence of coronary angioplasty implant and graft; I25.2 Old myocardial infarction; Z79.82 Long term (current) use of aspirin; Z79.01 Long term (current) use of anticoagulants; Z79.899 Other long term (current) drug therapy; Z87.891 Personal history of nicotine dependence; Z79.84 Long term (current) use of oral hypoglycemic drugs; Z79.4 Long term (current) use of insulin; Z68.28 Body mass index [BMI] 28.0-28.9, adult
CPT/HCPCS: 36415; 36600; 71045; 80048; 80053; 80061; 81003; 82375; 82805; 82962; 83036; 83880; 84145; 84484; 85025; 93005; 93306; 94660; 97162; 99291; J1815; J1940; J3480

== ENCOUNTER 2022-10-30 06:01 | Inpatient (IN) | payer MEDICARE, MEDICAID ==
[~2022-10-30] VITALS: Ht 165.1 cm; Wt 64.0 kg
[2022-10-30] MEDS ORDERED: NITROGLYCERIN 0.4MG TABLET SL SL PRN (06:30)
[2022-10-30 08:07] LABS: BASOPHILS % 0.8 % (0.0-2.0); EOSINOPHILS % 3.1 % (0.0-5.0); HEMATOCRIT. 37.8 % (36.0-48.0); HEMOGLOBIN. 12.4 g/dL (12.0-16.0); LYMPHOCYTES % 21.8 % (20.0-50.0); MEAN CORPUSCULAR HEMOGLOBIN 28.1 pg (28.0-32.0); MEAN CORPUSCULAR VOLUME 85.8 fL (81.0-99.0); MEAN PLATELET VOLUME 8.6 fl (7.4-10.4); MONOCYTES % 10.3 % (2.0-8.0); PLATELET 149 x1000/uL (130-400); RED BLOOD CELL COUNT 4.41 mill/uL (4.2-5.4); RED CELL DISTRIBUTION WIDTH 15.8 % (11.6-14.6)
[2022-10-30 08:15] LABS: CHLORIDE 111 mEq/L (98-107)
[2022-10-30] MEDS ORDERED: CLONIDINE 0.1MG TABLET PO PRN (11:30)
[2022-10-30] MEDS ORDERED: NALOXONE HCL 0.4MG/ML VIAL IV PRN (11:45)
[2022-10-30 13:34] VITALS: BP 127/74
[2022-10-30 13:36] VITALS: BP 127/74
[2022-10-30] MEDS: HYDROCODONE/ACETAMINOPHEN 5/325MG TABLET PO PRN ×2 (15:09→23:13)
[2022-10-30 16:00] VITALS: BP 112/63
[2022-10-30] MEDS: CALCIUM 1250MG TABLET (500MG ELEMENTAL CALCIUM) PO SCH (17:34)
[2022-10-30] MEDS: CARVEDILOL 12.5MG TABLET PO SCH (17:34)
[2022-10-30] MEDS: APIXABAN 5 MG TABLET PO SCH ×2 (17:34→21:00)
[2022-10-30 19:35] VITALS: BP 122/70
[2022-10-30] MEDS ORDERED: DEXTROSE 50% WATER 50ML SYRINGE IV PRN (20:00)
[2022-10-30] MEDS: BLOOD SUGAR DIAGNOSTIC STRIP TEST SCH (20:52)
[2022-10-30] MEDS: INSULIN LISPRO 100 UNITS/ML SUBCUT SCH (21:08)
[2022-10-30] MEDS: ATORVASTATIN CALCIUM 10MG TABLET PO SCH (21:09)
[2022-10-30 23:35] VITALS: BP 136/62
[2022-10-31 03:35] VITALS: BP 146/63
[2022-10-31] MEDS ORDERED: MAGNESIUM/ALUMINUM HYDROXIDE/SIMETHICONE 30ML UDC PO PRN (04:15)
[2022-10-31] MEDS: BLOOD SUGAR DIAGNOSTIC STRIP TEST SCH ×4 (05:57→21:00)
[2022-10-31] MEDS: INSULIN LISPRO 100 UNITS/ML SUBCUT SCH ×4 (07:20→21:14)
[2022-10-31 07:46] LABS: BASOPHILS % 0.7 % (0.0-2.0); EOSINOPHILS % 3.3 % (0.0-5.0); HEMATOCRIT. 36.6 % (36.0-48.0); MEAN CORPUSCULAR HEMOGLOBIN 28.1 pg (28.0-32.0); MEAN CORPUSCULAR VOLUME 85.6 fL (81.0-99.0); MEAN PLATELET VOLUME 8.4 fl (7.4-10.4); MONOCYTES % 11.3 % (2.0-8.0); NEUTROPHILS % 58.7 % (40.0-76.0); PLATELET 149 x1000/uL (130-400); RED BLOOD CELL COUNT 4.27 mill/uL (4.2-5.4); RED CELL DISTRIBUTION WIDTH 15.9 % (11.6-14.6)
[2022-10-31 07:51] LABS: CHLORIDE 109 mEq/L (98-107)
[2022-10-31 08:00] VITALS: BP 142/59
[2022-10-31 08:03] LABS: HDL CHOLESTEROL 49 mg/dL (40-59); LDL CHOLESTEROL 75 mg/dL (5-100); T4 FREE 0.74 ng/dL (0.76-1.46)
[2022-10-31] MEDS: ASPIRIN 81MG EC TABLET PO SCH (09:54)
[2022-10-31] MEDS: LOSARTAN POTASSIUM 50 MG TABLET PO SCH (09:54)
[2022-10-31] MEDS: FAMOTIDINE 20MG TABLET PO SCH (09:54)
[2022-10-31] MEDS: APIXABAN 5 MG TABLET PO SCH ×2 (09:55→21:13)
[2022-10-31] MEDS: CARVEDILOL 12.5MG TABLET PO SCH ×2 (09:55→16:47)
[2022-10-31] MEDS: CALCIUM 1250MG TABLET (500MG ELEMENTAL CALCIUM) PO SCH ×2 (09:55→16:46)
[2022-10-31] MEDS ORDERED: METOPROLOL TARTRATE 5MG/5ML VIAL IV PRN (10:45)
[2022-10-31 12:00] VITALS: BP 134/60
[2022-10-31 16:00] VITALS: BP 145/88
[2022-10-31 20:20] VITALS: BP 123/52
[2022-10-31] MEDS: ATORVASTATIN CALCIUM 10MG TABLET PO SCH (21:13)
[2022-11-01 00:04] VITALS: BP 147/52
[2022-11-01] MEDS: HYDROCODONE/ACETAMINOPHEN 5/325MG TABLET PO PRN ×2 (00:17→23:19)
[2022-11-01 04:46] VITALS: BP 149/53
[2022-11-01] MEDS: BLOOD SUGAR DIAGNOSTIC STRIP TEST SCH ×4 (06:08→20:51)
[2022-11-01 07:28] LABS: INR 1.1; PROTHROMBIN TIME 11.8 sec (9.6-11.0)
[2022-11-01 07:47] LABS: BASOPHILS % 0.8 % (0.0-2.0); EOSINOPHILS % 3.1 % (0.0-5.0); HEMATOCRIT. 38.2 % (36.0-48.0); HEMOGLOBIN. 12.6 g/dL (12.0-16.0); LYMPHOCYTES % 28.7 % (20.0-50.0); MEAN CORPUSCULAR HEMOGLOBIN 28.1 pg (28.0-32.0); MEAN CORPUSCULAR VOLUME 85.7 fL (81.0-99.0); MEAN PLATELET VOLUME 8.6 fl (7.4-10.4); MONOCYTES % 11.4 % (2.0-8.0); PLATELET 155 x1000/uL (130-400); RED BLOOD CELL COUNT 4.46 mill/uL (4.2-5.4); RED CELL DISTRIBUTION WIDTH 15.6 % (11.6-14.6)
[2022-11-01 08:00] VITALS: BP 161/64
[2022-11-01] MEDS: FAMOTIDINE 20MG TABLET PO SCH (08:00)
[2022-11-01] MEDS: APIXABAN 5 MG TABLET PO SCH (08:00)
[2022-11-01] MEDS: ASPIRIN 81MG EC TABLET PO SCH (08:00)
[2022-11-01] MEDS: LOSARTAN POTASSIUM 50 MG TABLET PO SCH (08:00)
[2022-11-01] MEDS: CARVEDILOL 12.5MG TABLET PO SCH ×2 (08:00→17:56)
[2022-11-01] MEDS: CALCIUM 1250MG TABLET (500MG ELEMENTAL CALCIUM) PO SCH ×2 (08:00→17:56)
[2022-11-01] MEDS: INSULIN LISPRO 100 UNITS/ML SUBCUT SCH ×4 (08:01→20:52)
[2022-11-01 09:06] LABS: CHLORIDE 110 mEq/L (98-107)
[2022-11-01] MEDS ORDERED: NITROGLYCERIN SPRAY/4.9GM CAN TL ONE (10:30)
[2022-11-01] MEDS ORDERED: IOHEXOL-350 100 ML BOTTLE ONE (11:34)
[2022-11-01 12:00] VITALS: BP 121/68
[2022-11-01 16:00] VITALS: BP 142/60
[2022-11-01 20:17] VITALS: BP 132/77
[2022-11-01] MEDS: ATORVASTATIN CALCIUM 10MG TABLET PO SCH (20:51)
[2022-11-02] VITALS (8 sets, daily range): BP systolic 102–142; BP diastolic 41–62
[2022-11-02] MEDS: BLOOD SUGAR DIAGNOSTIC STRIP TEST SCH ×4 (06:16→20:42)
[2022-11-02 06:21] LABS: BASOPHILS % 0.6 % (0.0-2.0); EOSINOPHILS % 2.9 % (0.0-5.0); HEMATOCRIT. 38.2 % (36.0-48.0); HEMOGLOBIN. 12.6 g/dL (12.0-16.0); LYMPHOCYTES % 26.5 % (20.0-50.0); MEAN CORPUSCULAR HEMOGLOBIN 28.3 pg (28.0-32.0); MEAN CORPUSCULAR VOLUME 86.3 fL (81.0-99.0); MEAN PLATELET VOLUME 8.5 fl (7.4-10.4); MONOCYTES % 12.5 % (2.0-8.0); NEUTROPHILS % 57.5 % (40.0-76.0); PLATELET 155 x1000/uL (130-400); RED BLOOD CELL COUNT 4.43 mill/uL (4.2-5.4); RED CELL DISTRIBUTION WIDTH 15.6 % (11.6-14.6)
[2022-11-02] MEDS: CALCIUM 1250MG TABLET (500MG ELEMENTAL CALCIUM) PO SCH ×2 (07:54→17:09)
[2022-11-02] MEDS: ASPIRIN 81MG EC TABLET PO SCH (07:54)
[2022-11-02] MEDS: CARVEDILOL 12.5MG TABLET PO SCH ×2 (07:55→16:47)
[2022-11-02] MEDS: INSULIN LISPRO 100 UNITS/ML SUBCUT SCH ×4 (07:55→21:01)
[2022-11-02] MEDS: FAMOTIDINE 20MG TABLET PO SCH (07:55)
[2022-11-02] MEDS: LOSARTAN POTASSIUM 50 MG TABLET PO SCH (07:55)
[2022-11-02] MEDS ORDERED: PHENYLEPHRINE 100MCG/ML 10ML VIAL (CATH LAB) ONE (09:00)
[2022-11-02] MEDS ORDERED: NICARDIPINE 100MCG/ML 10ML VIAL (CATH LAB) IV ONE (09:00)
[2022-11-02] MEDS ORDERED: NITROGLYCERIN 50MCG/ML 10ML VIAL (CATH LAB) IV ONE (09:00)
[2022-11-02] MEDS ORDERED: LIDOCAINE HCL/PF 1% 10 MG/ML 5ML VIAL ONE (13:04)
[2022-11-02] MEDS ORDERED: IODIXANOL 320MG/ML 100 ML BOTTLE IV ONE (13:04)
[2022-11-02] MEDS ORDERED: MIDAZOLAM HCL 2 MG/2 ML VIAL ONE (13:05)
[2022-11-02] MEDS ORDERED: FENTANYL CITRATE/PF 50MCG/ML 2ML VIAL ONE (13:05)
[2022-11-02] MEDS ORDERED: HEPARIN 1000 UNITS/ML 10ML ONE (13:07)
[2022-11-02] MEDS ORDERED: ATROPINE SULFATE 1MG/10ML SYR ONE (13:28)
[2022-11-02] MEDS ORDERED: ATROPINE SULFATE 1MG/10ML SYR IV PRN (14:00)
[2022-11-02] MEDS: ATORVASTATIN CALCIUM 10MG TABLET PO SCH (20:58)
[2022-11-03] VITALS: BP 135/70
[2022-11-03] MEDS: HYDROCODONE/ACETAMINOPHEN 5/325MG TABLET PO PRN (00:26)
[2022-11-03 04:00] VITALS: BP 114/52
[2022-11-03] MEDS: ACETAMINOPHEN 325MG TABLET PO PRN ×2 (05:11→14:59)
[2022-11-03] MEDS: BLOOD SUGAR DIAGNOSTIC STRIP TEST SCH ×2 (06:09→11:50)
[2022-11-03 08:00] VITALS: BP 115/49
[2022-11-03] MEDS: LOSARTAN POTASSIUM 50 MG TABLET PO SCH (08:12)
[2022-11-03] MEDS: CALCIUM 1250MG TABLET (500MG ELEMENTAL CALCIUM) PO SCH (08:12)
[2022-11-03] MEDS: CARVEDILOL 12.5MG TABLET PO SCH (08:12)
[2022-11-03] MEDS: ASPIRIN 81MG EC TABLET PO SCH (08:12)
[2022-11-03] MEDS: FAMOTIDINE 20MG TABLET PO SCH (08:12)
[2022-11-03] MEDS: INSULIN LISPRO 100 UNITS/ML SUBCUT SCH ×2 (08:14→13:45)
[2022-11-03 08:32] LABS: BASOPHILS % 0.7 % (0.0-2.0); EOSINOPHILS % 2.6 % (0.0-5.0); HEMATOCRIT. 38.6 % (36.0-48.0); HEMOGLOBIN. 12.7 g/dL (12.0-16.0); LYMPHOCYTES % 21.4 % (20.0-50.0); MEAN CORPUSCULAR HEMOGLOBIN 28.4 pg (28.0-32.0); MEAN CORPUSCULAR VOLUME 86.6 fL (81.0-99.0); MEAN PLATELET VOLUME 8.2 fl (7.4-10.4); MONOCYTES % 11.1 % (2.0-8.0); NEUTROPHILS % 64.2 % (40.0-76.0); PLATELET 147 x1000/uL (130-400); RED BLOOD CELL COUNT 4.46 mill/uL (4.2-5.4); RED CELL DISTRIBUTION WIDTH 15.8 % (11.6-14.6)
[2022-11-03 12:00] VITALS: BP 121/50
[2022-11-03 14:05] VITALS: BP 114/52
[2022-11-04] MEDS ORDERED: LOSARTAN POTASSIUM 25 MG TABLET PO SCH (09:00)
== END 2022-11-03 15:15 | disposition home health service (06) | DRG 286 ==
LOC: ER 06:01 → 3WST 14:17
PROVIDERS: ADMIT Internal Medicine; ATTEND Internal Medicine
PROC: 4A023N7 Measurement of Cardiac Sampling and Pressure, Left Heart, Percutaneous Approach (ICD-10-PCS; principal; 2022-11-03)
PROC: B2111ZZ Fluoroscopy of Multiple Coronary Arteries using Low Osmolar Contrast (ICD-10-PCS; 2022-11-03)
DX: I25.10 Atherosclerotic heart disease of native coronary artery without angina pectoris (principal); I50.23 Acute on chronic systolic (congestive) heart failure; E44.0 Moderate protein-calorie malnutrition; I11.0 Hypertensive heart disease with heart failure; I42.9 Cardiomyopathy, unspecified; E11.9 Type 2 diabetes mellitus without complications; I08.3 Combined rheumatic disorders of mitral, aortic and tricuspid valves; E78.00 Pure hypercholesterolemia, unspecified; K21.9 Gastro-esophageal reflux disease without esophagitis; Z20.822 Contact with and (suspected) exposure to COVID-19; M81.0 Age-related osteoporosis without current pathological fracture; I48.0 Paroxysmal atrial fibrillation; I25.2 Old myocardial infarction; Z68.23 Body mass index [BMI] 23.0-23.9, adult; Z95.5 Presence of coronary angioplasty implant and graft; Z87.891 Personal history of nicotine dependence; Z87.01 Personal history of pneumonia (recurrent); Z86.16 Personal history of COVID-19; Z79.01 Long term (current) use of anticoagulants
CPT/HCPCS: 36415; 71045; 75571; 80048; 80053; 80061; 82962; 83036; 83880; 84439; 84443; 84484; 85025; 87426; 93005; 93306; 93458; 99285; C1769; C1887; C1893; J0461; J1644; J1815; J2250; J2370; J3010; J3490; Q9967

== ENCOUNTER 2022-11-18 07:54 | Inpatient (IN) | payer MEDICARE, MEDICAID ==
[2022-11-18] VITALS (8 sets, daily range): BP systolic 126–174; BP diastolic 36–73
[~2022-11-18] VITALS: Ht 160 cm; Wt 68.0 kg
[~2022-11-18 07:54] MED LIST changes: -APIX5TAB MT; -ASPI-1497 MT; +NICARDIPINE 100MCG/ML 10ML VIAL (CATH LAB) IV ONE; +NITROGLYCERIN 50MCG/ML 10ML VIAL (CATH LAB) IV ONE
[2022-11-18] MEDS ORDERED: FURO-151 PO (10:11)
[2022-11-18] MEDS ORDERED: ASPI-1497 PO ×2 (10:11→18:02)
[2022-11-18] MEDS ORDERED: CLOP75TA33 PO (10:11)
[2022-11-18] MEDS ORDERED: MAGN200T4 PO (10:11)
[2022-11-18] MEDS ORDERED: APIX5TAB PO (10:11)
[2022-11-18] MEDS ORDERED: VALS160T2 PO (10:12)
[2022-11-18] MEDS ORDERED: IODIXANOL 320MG/ML 100 ML BOTTLE IV ONE (12:42)
[2022-11-18] MEDS ORDERED: FENTANYL CITRATE/PF 50MCG/ML 2ML VIAL ONE (12:42)
[2022-11-18] MEDS ORDERED: LIDOCAINE HCL 1% 20ML VIAL (Pyxis) INJ ONE (12:42)
[2022-11-18] MEDS ORDERED: MIDAZOLAM HCL 2 MG/2 ML VIAL ONE (12:42)
[2022-11-18] MEDS ORDERED: HEPARIN 1000 UNITS/ML 10ML ONE (12:42)
[2022-11-18] MEDS ORDERED: HYDRALAZINE 20MG/ML VIAL ONE (13:27)
[2022-11-18] MEDS ORDERED: CLOPIDOGREL 75MG TABLET ONE (13:37)
[2022-11-18] MEDS ORDERED: ASPIRIN 325MG TABLET ONE (13:37)
[2022-11-18] MEDS ORDERED: ATROPINE SULFATE 1MG/10ML SYR IV PRN (13:45)
[2022-11-18] MEDS ORDERED: ONDANSETRON HCL 4MG/2ML INJ IV PRN (13:45)
[2022-11-18] MEDS ORDERED: DEXTROSE 50% WATER 50ML SYRINGE IV PRN (14:00)
[2022-11-18] MEDS: ACETAMINOPHEN 325MG TABLET PO PRN ×2 (16:32→22:06)
[2022-11-18] MEDS: INSULIN LISPRO 100 UNITS/ML SUBCUT SCH ×2 (17:20→20:31)
[2022-11-18] MEDS: BLOOD SUGAR DIAGNOSTIC STRIP TEST SCH ×2 (17:39→20:31)
[2022-11-18] MEDS: LOSARTAN POTASSIUM 25 MG TABLET PO SCH (17:50)
[2022-11-18] MEDS: DILTIAZEM HCL 30MG TABLET PO SCH (17:50)
[2022-11-18] MEDS ORDERED: APIX2.5T PO (17:57)
[2022-11-18] MEDS ORDERED: CLOP-31 PO (17:58)
[2022-11-18] MEDS ORDERED: MAGN500C4 PO (17:59)
[2022-11-18] MEDS ORDERED: FERR325T6 PO (18:01)
[2022-11-18] MEDS ORDERED: FURO40TA5 PO (18:03)
[2022-11-18] MEDS ORDERED: LIRA0.6P SQ (18:04)
[2022-11-18] MEDS ORDERED: BLOO-1113 HHN (18:05)
[2022-11-18] MEDS ORDERED: INSU200I4 SQ (18:08)
[2022-11-18] MEDS ORDERED: HYDR-4005 PO (18:10)
[2022-11-18] MEDS ORDERED: CALC-26 PO (18:11)
[2022-11-18 18:15] LABS: BASOPHILS % 0.6 % (0.0-2.0); EOSINOPHILS % 2.9 % (0.0-5.0); HEMATOCRIT. 38.5 % (36.0-48.0); HEMOGLOBIN. 12.6 g/dL (12.0-16.0); LYMPHOCYTES % 26.1 % (20.0-50.0); MEAN CORPUSCULAR HEMOGLOBIN 28.3 pg (28.0-32.0); MEAN CORPUSCULAR VOLUME 86.6 fL (81.0-99.0); MEAN PLATELET VOLUME 8.6 fl (7.4-10.4); MONOCYTES % 11.7 % (2.0-8.0); NEUTROPHILS % 58.7 % (40.0-76.0); PLATELET 184 x1000/uL (130-400); RED BLOOD CELL COUNT 4.45 mill/uL (4.2-5.4); RED CELL DISTRIBUTION WIDTH 16.5 % (11.6-14.6)
[2022-11-18 18:22] LABS: CHLORIDE 107 mEq/L (98-107)
[2022-11-18] MEDS: CARVEDILOL 3.125 MG TABLET PO SCH (20:25)
[2022-11-18] MEDS ORDERED: ATORVASTATIN CALCIUM 20MG TABLET PO SCH (21:00)
[2022-11-19] VITALS: BP 126/54
[2022-11-19] MEDS: DILTIAZEM HCL 30MG TABLET PO SCH ×2 (00:37→06:35)
[2022-11-19 04:00] VITALS: BP 133/86
[2022-11-19 06:11] LABS: BASOPHILS % 0.5 % (0.0-2.0); EOSINOPHILS % 2.8 % (0.0-5.0); HEMATOCRIT. 36.5 % (36.0-48.0); HEMOGLOBIN. 12.1 g/dL (12.0-16.0); LYMPHOCYTES % 15.3 % (20.0-50.0); MEAN CORPUSCULAR HEMOGLOBIN 28.5 pg (28.0-32.0); MEAN CORPUSCULAR VOLUME 85.5 fL (81.0-99.0); MEAN PLATELET VOLUME 8.6 fl (7.4-10.4); MONOCYTES % 12.1 % (2.0-8.0); NEUTROPHILS % 69.3 % (40.0-76.0); PLATELET 170 x1000/uL (130-400); RED BLOOD CELL COUNT 4.27 mill/uL (4.2-5.4); RED CELL DISTRIBUTION WIDTH 16.4 % (11.6-14.6)
[2022-11-19] MEDS: BLOOD SUGAR DIAGNOSTIC STRIP TEST SCH (06:49)
[2022-11-19 08:00] VITALS: BP 102/43
[2022-11-19] MEDS: LOSARTAN POTASSIUM 25 MG TABLET PO SCH (08:07)
[2022-11-19] MEDS: CARVEDILOL 3.125 MG TABLET PO SCH (08:07)
[2022-11-19] MEDS: INSULIN LISPRO 100 UNITS/ML SUBCUT SCH (08:10)
[2022-11-19] MEDS ORDERED: ASPIRIN 325MG TABLET PO SCH (09:00)
[2022-11-19] MEDS ORDERED: CLOPIDOGREL 75MG TABLET PO SCH (09:00)
[2022-11-19] MEDS ORDERED: APIXABAN 5 MG TABLET PO SCH (09:00)
[2022-11-19] MEDS ORDERED: FUROSEMIDE 40MG TABLET PO SCH (09:00)
[2022-11-19 10:15] VITALS: BP 102/43
== END 2022-11-19 12:15 | disposition home health service (06) | DRG 247 ==
LOC: CCL 07:54 → 3WST 16:06
PROVIDERS: ADMIT Specialist; ATTEND Specialist
PROC: 027035Z Dilation of Coronary Artery, One Artery with Two Drug-eluting Intraluminal Devices, Percutaneous Approach (ICD-10-PCS; principal; 2022-11-18)
PROC: B210YZZ Fluoroscopy of Single Coronary Artery using Other Contrast (ICD-10-PCS; 2022-11-18)
DX: I25.10 Atherosclerotic heart disease of native coronary artery without angina pectoris (principal); E11.51 Type 2 diabetes mellitus with diabetic peripheral angiopathy without gangrene; I25.5 Ischemic cardiomyopathy; E78.5 Hyperlipidemia, unspecified; I48.0 Paroxysmal atrial fibrillation; I34.0 Nonrheumatic mitral (valve) insufficiency; F17.200 Nicotine dependence, unspecified, uncomplicated; I11.0 Hypertensive heart disease with heart failure; I50.9 Heart failure, unspecified; Z79.01 Long term (current) use of anticoagulants; Z79.02 Long term (current) use of antithrombotics/antiplatelets; Z79.82 Long term (current) use of aspirin; Z79.899 Other long term (current) drug therapy; I25.2 Old myocardial infarction; Z79.84 Long term (current) use of oral hypoglycemic drugs; Z79.4 Long term (current) use of insulin
CPT/HCPCS: 36415; 80048; 82962; 83036; 83735; 85025; 85347; 92928; 93005; C1760; C1769; C1874; C1887; C1893; J0360; J1644; J1815; J2250; J3010; J3490; Q9967

== ENCOUNTER 2024-10-08 23:23 | Emergency (ER) | payer MEDICARE, MEDICAID ==
[~2024-10-08] VITALS: Ht 160 cm; Wt 68.0 kg
[~2024-10-08 23:23] MED LIST changes: +APIX2.5T PO; +ASPI-1497 PO; +BLOO-1113 HHN; -CALC-26 MT; +CALC-26 PO; +CLOP-31 PO; -DEXTL PO; -FERR325T6 MT; +FERR325T6 PO; +FURO40TA5 PO; +LEVO-65 MT; +LIRA0.6P SQ; +MAGN500C4 PO; -NICARDIPINE 100MCG/ML 10ML VIAL (CATH LAB) IV ONE; -NITROGLYCERIN 50MCG/ML 10ML VIAL (CATH LAB) IV ONE
[2024-10-08 23:26] VITALS: O2SAT 100
[2024-10-09 00:22] LABS: BASOPHILS % 0.8 % (0.0-2.0); EOSINOPHILS % 2.3 % (0.0-5.0); HEMATOCRIT. 40.3 % (36.0-48.0); MEAN CORPUSCULAR HEMOGLOBIN 27.3 pg (28.0-32.0); MEAN CORPUSCULAR HGB CONC 32.1 g/dL (31.0-37.0); MEAN CORPUSCULAR VOLUME 85.1 fL (81.0-99.0); MEAN PLATELET VOLUME 8.8 fl (7.4-10.4); MONOCYTES % 8.5 % (2.0-8.0); NEUTROPHILS % 74.4 % (40.0-76.0); PLATELET 169 x1000/uL (130-400); RED BLOOD CELL COUNT 4.74 mill/uL (4.2-5.4); RED CELL DISTRIBUTION WIDTH 16.7 % (11.6-14.6); WHITE BLOOD COUNT 5.9 x1000/uL (4.5-11.0)
[2024-10-09 00:32] LABS: CARBON DIOXIDE 26 mEq/L (21-32); CHLORIDE 105 mEq/L (98-107); POTASSIUM 4.6 mEq/L (3.5-5.1); SODIUM 139 mEq/L (136-145)
[2024-10-09 00:33] LABS: CALCIUM 9.8 mg/dL (8.7-10.4)
[2024-10-09] MEDS: ONDANSETRON HCL 4MG/2ML INJ IV STA (00:33)
[2024-10-09 00:37] LABS: CREATININE 1.3 mg/dL (0.6-1.0)
[2024-10-09 00:38] LABS: GLUCOSE 116 mg/dL (70-105); UREA NITROGEN BLOOD 23 mg/dL (9-23)
[2024-10-09 00:39] LABS: ALANINE AMINOTRANSFERASE 14 IU/L (10-49); ASPARTATE AMINOTRANSFERASE 19 IU/L (<34)
[2024-10-09 00:40] LABS: ALBUMIN 4.2 g/dL (3.2-4.8); BILIRUBIN DIRECT 0.2 mg/dL (<=3.0); BILIRUBIN TOTAL 0.7 mg/dL (0.1-1.0); PROTEIN TOTAL 7.3 g/dL (6.0-8.3)
[2024-10-09] MEDS ORDERED: ONDA4TAB50 MT (02:16)
[2024-10-09 02:34] VITALS: BP 120/72; PULSE 104; RESP 17; TEMP 36.7; O2SAT 97
== END 2024-10-09 03:00 | disposition home or self-care (01) ==
LOC: ER 23:23
DX: A05.9 Bacterial foodborne intoxication, unspecified (principal); R11.2 Nausea with vomiting, unspecified; E11.9 Type 2 diabetes mellitus without complications; I10 Essential (primary) hypertension; Z79.01 Long term (current) use of anticoagulants; Z79.02 Long term (current) use of antithrombotics/antiplatelets; Z79.82 Long term (current) use of aspirin; Z79.84 Long term (current) use of oral hypoglycemic drugs; Z79.85 Long-term (current) use of injectable non-insulin antidiabetic drugs; Z79.899 Other long term (current) drug therapy
CPT/HCPCS: 99283; 36415; 96374; 80076; 80048; 83605; 83690; 85025; J2405

== ENCOUNTER 2024-10-10 00:32 | Inpatient (IN) | payer MEDICARE, MEDICAID ==
[~2024-10-10] VITALS: Ht 160 cm; Wt 82.6 kg
[~2024-10-10 00:32] MED LIST changes: +ONDA4TAB50 MT
[2024-10-10 01:01] LABS: BASOPHILS % 0.4 % (0.0-2.0); EOSINOPHILS % 1.1 % (0.0-5.0); HEMATOCRIT. 39.4 % (36.0-48.0); HEMOGLOBIN. 12.4 g/dL (12.0-16.0); LYMPHOCYTES % 10.8 % (20.0-50.0); MEAN CORPUSCULAR HEMOGLOBIN 27.2 pg (28.0-32.0); MEAN CORPUSCULAR HGB CONC 31.5 g/dL (31.0-37.0); MEAN CORPUSCULAR VOLUME 86.2 fL (81.0-99.0); MONOCYTES % 6.9 % (2.0-8.0); NEUTROPHILS % 80.8 % (40.0-76.0); PLATELET 148 x1000/uL (130-400); RED BLOOD CELL COUNT 4.57 mill/uL (4.2-5.4); RED CELL DISTRIBUTION WIDTH 16.6 % (11.6-14.6); WHITE BLOOD COUNT 6.4 x1000/uL (4.5-11.0)
[2024-10-10 01:08] LABS: CHLORIDE 104 mEq/L (98-107); POTASSIUM 5.1 mEq/L (3.5-5.1); SODIUM 134 mEq/L (136-145)
[2024-10-10 01:09] LABS: CALCIUM 9.2 mg/dL (8.7-10.4); CARBON DIOXIDE 23 mEq/L (21-32)
[2024-10-10 01:14] LABS: GLUCOSE 195 mg/dL (70-105); UREA NITROGEN BLOOD 26 mg/dL (9-23)
[2024-10-10 01:16] LABS: ALANINE AMINOTRANSFERASE 21 IU/L (10-49); ALBUMIN 3.9 g/dL (3.2-4.8); ASPARTATE AMINOTRANSFERASE 32 IU/L (<34); BILIRUBIN DIRECT 0.2 mg/dL (<=3.0); BILIRUBIN TOTAL 0.5 mg/dL (0.1-1.0); PROTEIN TOTAL 6.6 g/dL (6.0-8.3)
[2024-10-10 01:20] LABS: CREATININE 1.8 mg/dL (0.6-1.0)
[2024-10-10 01:22] LABS: TROPONIN I HIGH SENSITIVITY 89 ng/L (3.0-34)
[2024-10-10] MEDS ORDERED: DEXTROSE 50% WATER 50ML SYRINGE IV PRN (07:00)
[2024-10-10] MEDS ORDERED: ONDANSETRON HCL 4MG TABLET PO PRN (07:00)
[2024-10-10] MEDS ORDERED: ALENDRONATE SODIUM 35MG TABLET PO SCH (07:00)
[2024-10-10] MEDS: INSULIN LISPRO 100 UNITS/ML SUBCUT SCH (07:15)
[2024-10-10 08:00] VITALS: BP 115/67; PULSE 102; RESP 18; TEMP 36.6; O2SAT 98
[2024-10-10 08:47] VITALS: BP 120/75; PULSE 110; RESP 17; TEMP 36
[2024-10-10] MEDS ORDERED: LOSARTAN 50 MG TABLET PO SCH (09:00)
[2024-10-10] MEDS: ASPIRIN 81MG TABLET PO SCH (09:29)
[2024-10-10] MEDS: FUROSEMIDE 40MG TABLET PO SCH (09:30)
[2024-10-10] MEDS: CARVEDILOL 12.5MG TABLET PO SCH (09:30)
[2024-10-10] MEDS: CLOPIDOGREL 75MG TABLET PO SCH (09:30)
[2024-10-10] MEDS: DILTIAZEM HCL 120MG CAPSULE ER 24HR PO SCH (09:30)
[2024-10-10] MEDS: APIXABAN 2.5 MG TABLET PO SCH (09:30)
[2024-10-10] MEDS: EMPAGLIFLOZIN 10MG TABLET PO SCH (09:31)
[2024-10-10] MEDS: CALCIUM 1250MG TABLET (500MG ELEMENTAL CALCIUM) PO SCH (09:36)
[2024-10-10 10:19] LABS: BASOPHILS % 0.9 % (0.0-2.0); EOSINOPHILS % 2.3 % (0.0-5.0); HEMATOCRIT. 41.5 % (36.0-48.0); LYMPHOCYTES % 20.1 % (20.0-50.0); MEAN CORPUSCULAR HEMOGLOBIN 27.1 pg (28.0-32.0); MEAN CORPUSCULAR HGB CONC 31.3 g/dL (31.0-37.0); MEAN CORPUSCULAR VOLUME 86.5 fL (81.0-99.0); MEAN PLATELET VOLUME 9.6 fl (7.4-10.4); MONOCYTES % 11.4 % (2.0-8.0); NEUTROPHILS % 65.3 % (40.0-76.0); PLATELET 153 x1000/uL (130-400); RED CELL DISTRIBUTION WIDTH 16.6 % (11.6-14.6); WHITE BLOOD COUNT 4.8 x1000/uL (4.5-11.0)
[2024-10-10] MEDS: BLOOD SUGAR DIAGNOSTIC STRIP TEST SCH (11:45)
[2024-10-10 12:00] VITALS: BP 119/56; PULSE 96; RESP 18; TEMP 36.1; O2SAT 99
[2024-10-10] MEDS: ACETAMINOPHEN 325MG TABLET PO PRN (13:51)
[2024-10-10 16:00] VITALS: BP 104/50; PULSE 70; RESP 18; TEMP 36.4; O2SAT 100
[2024-10-10 20:00] VITALS: BP 130/89; PULSE 80; RESP 16; TEMP 35.6; O2SAT 99
[2024-10-10] MEDS: ATORVASTATIN CALCIUM 10MG TABLET PO SCH (21:28)
[2024-10-11] VITALS: BP 111/53; PULSE 105; RESP 17; TEMP 35.8; O2SAT 97
[2024-10-11 04:00] VITALS: BP 108/61; PULSE 95; RESP 18; TEMP 35.6; O2SAT 99
[2024-10-11 06:43] LABS: CALCIUM 10.2 mg/dL (8.7-10.4)
[2024-10-11 06:49] LABS: CREATININE 1.4 mg/dL (0.6-1.0)
[2024-10-11 06:55] LABS: BASOPHILS % 0.5 % (0.0-2.0); EOSINOPHILS % 2.7 % (0.0-5.0); HEMATOCRIT. 38.6 % (36.0-48.0); HEMOGLOBIN. 12.6 g/dL (12.0-16.0); LYMPHOCYTES % 15.5 % (20.0-50.0); MEAN CORPUSCULAR HEMOGLOBIN 27.6 pg (28.0-32.0); MEAN CORPUSCULAR HGB CONC 32.6 g/dL (31.0-37.0); MEAN CORPUSCULAR VOLUME 84.5 fL (81.0-99.0); MEAN PLATELET VOLUME 9.3 fl (7.4-10.4); NEUTROPHILS % 67.3 % (40.0-76.0); PLATELET 143 x1000/uL (130-400); RED BLOOD CELL COUNT 4.57 mill/uL (4.2-5.4); RED CELL DISTRIBUTION WIDTH 16.2 % (11.6-14.6); WHITE BLOOD COUNT 4.2 x1000/uL (4.5-11.0)
[2024-10-11 07:47] LABS: POTASSIUM 4.1 mEq/L (3.5-5.1)
[2024-10-11 08:00] VITALS: BP 124/64; PULSE 71; RESP 18; TEMP 36.5; O2SAT 100
[2024-10-11] MEDS: MAGNESIUM OXIDE 400MG TABLET PO SCH (10:01)
[2024-10-11 11:18] VITALS: BP 125/62; PULSE 82; TEMP 97.2; O2SAT 100
== END 2024-10-11 12:00 | disposition home or self-care (01) | DRG 291 ==
LOC: ER 00:32 → EDBEDREQ 00:54 → 5WST 04:57 → EDBEDREQ 04:59
PROVIDERS: ADMIT Internal Medicine; ATTEND Internal Medicine
DX: I11.0 Hypertensive heart disease with heart failure (principal); I50.23 Acute on chronic systolic (congestive) heart failure; N17.0 Acute kidney failure with tubular necrosis; I48.0 Paroxysmal atrial fibrillation; E11.9 Type 2 diabetes mellitus without complications; Z20.822 Contact with and (suspected) exposure to COVID-19; I34.0 Nonrheumatic mitral (valve) insufficiency; I25.10 Atherosclerotic heart disease of native coronary artery without angina pectoris; E78.5 Hyperlipidemia, unspecified; Z95.5 Presence of coronary angioplasty implant and graft; Z79.01 Long term (current) use of anticoagulants; Z79.02 Long term (current) use of antithrombotics/antiplatelets; Z79.82 Long term (current) use of aspirin; Z79.899 Other long term (current) drug therapy; Z87.891 Personal history of nicotine dependence
CPT/HCPCS: 36415; 71045; 80048; 80061; 80076; 82962; 83036; 83880; 84484; 85025; 87426; 93005; 93306; 99285; A4606